=== PATIENT | female | born 1960 | race Caucasian/White ===

== ENCOUNTER 2020-12-10 10:26 | Emergency (ER) | payer BC, SELFPAY ==
--- NOTE | 2020-12-10 10:34 | W.ED.UPPEXIN ---
HPI - Extremity Injury (Upper) General: Chief Complaint: Extremity Injury, Upper Stated Complaint: RIGHT LITTLE FINGER PAIN Time Seen by Provider: 12/10/20 10:29 Source: patient Mode of arrival: ambulatory Limitations: no limitations History of Present Illness: HPI narrative: Patient is a 60-year-old female who presents to ED today with complaints of a right fifth finger injury. She states approximately 4 to 5 days ago she got the finger caught in a tractor bucket. Tetanus is UTD. complaint: injury to: right and finger Onset (ago): day(s) Other Extremity Injury: Right: fingers Other injuries: none Place: home Severity: severe Relieving factors: immobilization Exacerbating factors: other (palpation) Context: direct blow Associated symptoms: Reports no associated symptoms Review of Systems Musc: Reports: extremity pain (R 5th finger) Skin/Breast: Reports: other (laceration R 5th finger) Neuro: Denies: numbness in extremities or sensory changes Physical Exam Const: COMMON NORMALS: no acute distress, average body habitus, patient oriented x3, no limitations, healthy appearing, alert and well nourished Extremity: RIGHT UPPER EXTREMITY: Yes hand & digits (see below) OTHER: pt has small 0.5cm contusion/laceration and exposed fat tissue to ulnar side of the distal tip of her R 5th finger; there is no nail damage-extremely small subungual hematoma noted; no redness or drainage; no swelling; full ROM; TTP Neuro: COMMON NORMALS: patient oriented x3, moves all extremities, no focal motor deficits and no sensory deficits noted SENSORIUM/ORIENTATION: Yes alert Skin: NARRATIVE SKIN EXAM: see extremity assessment for pertinent skin findings Course Vital Signs: Vital signs: Vital Signs Temperature 98.0 F 12/10/20 10:39 Pulse Rate 57 L 12/10/20 10:39 Respiratory Rate 16 12/10/20 10:39 Blood Pressure 135/74 12/10/20 10:39 Pulse Oximetry 97 12/10/20 10:39 MDM - Extremity Injury (Upper) MDM Narrative: Medical decision making narrative: exposed fat removed as patient states it was very tender and was getting caught on things; laceration repair contraindicated secondary to length of time from initial injury; XR negative; tetanus UTD; wound care discussed at home Imaging Data^: XR R finger: Radiologist's impression: [facility], [place] [address]LSdz ReportSigned Patient: Anita Burkett #: [id number]: [id number]#:[id number]/Sex: 60 / FADM Date: 12/10/20Loc: ERRoom/Bed:Attending Dr: Ordering Provider/Ordering MD: Jessenia Ribera Date of Service: 12/10/20 Procedure(s): XR finger RT min 2V 68253 Accession Number(s): [id number] Report Number: [id number] WS: [id number] 3 views of the right fifth finger, 12/10/2020 Clinical Data: 5th; trauma Comparison: None. Findings: No fractures or dislocations are seen. The soft tissues are normal. The joint spaces are not remarkable. XR/XR finger RT min 2V [id number] Impression: Negative right fifth finger. Dictated By:Maryc Mena MDSigned By:Marcy Mena MDSigned Date/Time:12/10/20 1100DD/ 1059 Discharge Plan Discharge Patient Disposition: Home Clinical Impression: Laceration of right little finger Qualifiers: Encounter type: initial encounter Damage to nail status: without damage Foreign body presence: without foreign body Qualified Code(s): S61.216A - Laceration without foreign body of right little finger without damage to nail, initial encounter Condition: Stable Discharge Orders: Discharge ED (Routine); Ordered 12/10/20 Ordered By: Jessenia Ribera Patient Instructions: Finger Laceration (ED) Coding Level of Care Code 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
[2020-12-10 10:39] VITALS: BP 135/74; PULSE 57; RESP 16; TEMP 36.7; O2SAT 97; BMI 24.0
--- NOTE | 2020-12-10 10:48 | XR_ITS ---
WS: [id number] 3 views of the right fifth finger, 12/10/2020 Clinical Data: 5th; trauma Comparison: None. Findings: No fractures or dislocations are seen. The soft tissues are normal. The joint spaces are not remarka ble. XR/XR finger RT min 2V 12430 Impression: Negative right fifth finger.
[2020-12-10 12:18] VITALS: BP 130/72; PULSE 60; O2SAT 98
== END 2020-12-10 12:10 | disposition home or self-care (01) ==
PROVIDERS: Emergency Provider Physician Assistant
DX: S61.216A Laceration without foreign body of right little finger without damage to nail, initial encounter (principal); W26.8XXA Contact with other sharp object(s), not elsewhere classified, initial encounter
CPT/HCPCS: 73140; 99282

== ENCOUNTER 2020-12-18 09:11 | Emergency (ER) | payer BC, SELFPAY ==
[2020-12-18 09:12] VITALS: BP 145/86; PULSE 65; RESP 16; TEMP 36.7; O2SAT 99; BMI 24.0
--- NOTE | 2020-12-18 09:26 | ED_ITS ---
HPI - Recheck/Abnormal Lab/Rx General: Chief Complaint: Recheck/Abnormal Lab/Rx Stated Complaint: RIGHT LITTLE FINGER PAIN Time Seen by Provider: 12/18/20 09:14 History of Present Illness: HPI narrative: Patient states the flash in her finger wound is starting to protrude again MD complaint: wound re-check Review of Systems Const: Denies: fever(s), chills or body aches Eyes: Denies: change in vision or blurry vision ENMT: Denies: throat pain or nasal congestion Card: Denies: chest pain or dyspnea on exertion Resp: Denies: dyspnea, productive cough or non-productive cough GI: Denies: abdominal pain, nausea or vomiting Musc: Denies: extremity pain Skin/Breast: Reports: other (Change in wound patient was seen for here the other day.); Denies: rash Neuro: Denies: headache(s) Psych: Denies: anxiety or depression Héctor/Lymph: Denies: easy bruising Physical Exam Const: COMMON NORMALS: no acute distress Psych: COMMON NORMALS: mental status grossly normal Skin: OTHER: Where wound is open on little finger there is some fat/flash starting to protrude from the pressure in the wound slight redness no drainage. Mild tenderness. Course Vital Signs: Vital signs: Vital Signs Temperature 98.1 F 12/18/20 09:12 Pulse Rate 65 12/18/20 09:12 Respiratory Rate 16 12/18/20 09:12 Blood Pressure 145/86 12/18/20 09:12 Pulse Oximetry 99 12/18/20 09:12 Discharge Plan Discharge Patient Disposition: Home Clinical Impression: Encounter for wound re-check Condition: Stable Prescriptions: New cephalexin 500 mg capsule 500 mg PO Q8H 7 Days Qty: 21 RF: 0 Discharge Orders: Discharge ED (Routine); Ordered 12/18/20 Ordered By: Hua Ngo Discharge Diet: Usual diet Discharge Activity: Increase activity as tolerated Activity Restrictions/Additional Instructions: Apply Vaseline or petroleum jelly to the wound site daily. Wrapped with Telfa pad and Coban daily. Follow-up your primary care provider if no significant improvement. 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
--- NOTE | 2020-12-18 09:39 | PC.NURSE ---
applied bandaged to right 5th digit; pt tolerated well.
== END 2020-12-18 09:39 | disposition home or self-care (01) ==
LOC: ER 09:41
PROVIDERS: Emergency Provider Nurse Practitioner Family
DX: Z48.00 Encounter for change or removal of nonsurgical wound dressing (principal)
CPT/HCPCS: 99282